=== PATIENT | female | born 1980 | race Caucasian/White ===

== ENCOUNTER 2017-01-28 04:48 | Inpatient (IN) | payer OTHER ==
[~2017-01-28] VITALS: Ht 160 cm; Wt 93.9 kg
[2017-01-28] VITALS (11 sets, daily range): BP systolic 106–135; BP diastolic 55–77
[~2017-01-28 04:48] MED LIST: ATIVAN0.5 MG PO; FLAGYL500 MG PO; IRON325 M1 PO; MOBIC7.5 MG PO; MULTIPLE VITAM1 EACH PO; NAPROSYN500 MG PO; RANITIDINE HCL150 MG PO; ZOFRAN4 MG PO
[2017-01-28 05:47] LABS: EOSINOPHIL (%) 1.4 % (0-5); EOSINOPHIL COUNT 0.1 K/uL (0-0.3); IMMATURE GRANULOCYTE (%) 1.7 % (0.0-0.7); IMMATURE GRANULOCYTE COUNT 0.2 K/uL; INSTRUMENT ABS NEUTROPHIL CT 6.5 K/uL; MCH 27.4 PG (29.0-34.0); MCHC 32.5 G/DL (30.0-36.0); MCV 84.4 FL (83-99); MEAN PLAT.VOLUME 10.4 uM^3 (9.5-12.4); MONOCYTE (%) 5.8 % (3-12); MONOCYTE COUNT 0.5 K/uL (0-0.8); NEUTROPHIL (%) 69.5 % (45-76); NEUTROPHIL COUNT 6.5 K/uL (1.8-6.4); PLATELET COUNT 201 K/uL (156-360); RBC DIS.WIDTH-CV 15.9 % (11.8-14.6); RBC DIS.WIDTH-SD 48.6 % (39-53); RED BLOOD COUNT 3.79 M/uL (3.80-5.20); WHITE BLOOD COUNT 9.4 K/uL (4.1-10.2)
[2017-01-29 03:46] VITALS: BP 128/86
[2017-01-29 07:11] LABS: EOSINOPHIL (%) 1.3 % (0-5); EOSINOPHIL COUNT 0.1 K/uL (0-0.3); HEMATOCRIT 28.2 % (36.0-46.0); IMMATURE GRANULOCYTE (%) 1.2 % (0.0-0.7); IMMATURE GRANULOCYTE COUNT 0.1 K/uL; INSTRUMENT ABS NEUTROPHIL CT 7.9 K/uL; LYMPHOCYTE COUNT 2.2 K/uL (1.0-2.8); MCH 27.2 PG (29.0-34.0); MCHC 31.9 G/DL (30.0-36.0); MCV 85.2 FL (83-99); MEAN PLAT.VOLUME 10.5 uM^3 (9.5-12.4); MONOCYTE (%) 7.1 % (3-12); MONOCYTE COUNT 0.8 K/uL (0-0.8); NEUTROPHIL (%) 70.7 % (45-76); NEUTROPHIL COUNT 7.9 K/uL (1.8-6.4); PLATELET COUNT 185 K/uL (156-360); RBC DIS.WIDTH-SD 49.5 % (39-53); RED BLOOD COUNT 3.31 M/uL (3.80-5.20); WHITE BLOOD COUNT 11.1 K/uL (4.1-10.2)
[2017-01-29 07:50] VITALS: BP 122/73
[2017-01-29 11:40] VITALS: BP 122/59
[2017-01-29 16:30] VITALS: BP 129/66
[2017-01-30 07:32] VITALS: BP 127/59
[2017-01-30 11:33] VITALS: BP 136/73
[2017-01-30 15:50] VITALS: BP 134/64
[2017-01-30 20:24] VITALS: BP 138/67
[2017-01-30 23:44] VITALS: BP 133/55
[2017-01-31 02:55] VITALS: BP 151/83
[2017-01-31] MEDS ORDERED: IBUPROFEN800 MG PO (09:52)
[2017-01-31] MEDS ORDERED: ENDOCET 5-3251 EACH PO (09:52)
== END 2017-01-31 12:50 | disposition home or self-care (01) | DRG 766 ==
LOC: 2WEST 04:48 → 2SOUTH 11:52 → 2WEST 01-31 12:50
PROVIDERS: Obstetrics & Gynecology
DX: O34.211 Maternal care for low transverse scar from previous cesarean delivery (principal); O99.824 Streptococcus B carrier state complicating childbirth; N85.8 Other specified noninflammatory disorders of uterus; K21.9 Gastro-esophageal reflux disease without esophagitis; Z3A.39 39 weeks gestation of pregnancy; Z37.0 Single live birth
CPT/HCPCS: 85025; 86850; 86900; 86901; 88302; J0690; J1100; J2250; J2274; J2405; J3010; J7120

== ENCOUNTER 2017-02-03 22:47 | Emergency (ER) | payer OTHER ==
[~2017-02-03] VITALS: Ht 160 cm; Wt 91.6 kg
[~2017-02-03 22:47] MED LIST changes: +ENDOCET 5-3251 EACH PO; +IBUPROFEN800 MG PO
[2017-02-04 00:02] LABS: HEMATOCRIT 30.7 % (36.0-46.0); MCH 27.6 PG (29.0-34.0); MCHC 32.9 G/DL (30.0-36.0); MCV 83.9 FL (83-99); MEAN PLAT.VOLUME 10.3 uM^3 (9.5-12.4); PLATELET COUNT 293 K/uL (156-360); RBC DIS.WIDTH-CV 15.5 % (11.8-14.6); RBC DIS.WIDTH-SD 47.8 % (39-53); RED BLOOD COUNT 3.66 M/uL (3.80-5.20); WHITE BLOOD COUNT 9.5 K/uL (4.1-10.2)
[2017-02-04 00:09] LABS: CHLORIDE 112 mEq/L (99-109); POTASSIUM 3.8 mEq/L (3.7-5.4)
[2017-02-04 00:10] LABS: SODIUM 143 mEq/L (136-147)
[2017-02-04 00:11] LABS: GLUCOSE 100 mg/dL (70-99)
[2017-02-04 00:13] LABS: ANION GAP 11 MEQ/L (2-14)
[2017-02-04 00:15] LABS: GFR ESTIMATE (CALCULATED) > 59 mL/min/
[2017-02-04 00:16] LABS: UREA NITROGEN (BUN) 10 mg/dL (9-23)
[2017-02-04 01:10] VITALS: BP 138/59
== END 2017-02-04 01:23 | disposition home or self-care (01) ==
LOC: EME 22:47 → EXP 22:47
PROVIDERS: Physician Assistant
DX: T78.40XA Allergy, unspecified, initial encounter (principal)
CPT/HCPCS: 80048; 85027; 99281; 99284

== ENCOUNTER 2017-02-06 15:47 | Inpatient (IN) | payer OTHER ==
[~2017-02-06] VITALS: Ht 170.2 cm; Wt 86.5 kg
[2017-02-06] VITALS (8 sets, daily range): BP systolic 142–184; BP diastolic 70–89
[2017-02-06 18:13] LABS: HEMATOCRIT 35.9 % (36.0-46.0); MCH 26.6 PG (29.0-34.0); MCHC 31.8 G/DL (30.0-36.0); MCV 83.9 FL (83-99); MEAN PLAT.VOLUME 9.5 uM^3 (9.5-12.4); PLATELET COUNT 369 K/uL (156-360); RBC DIS.WIDTH-CV 15.2 % (11.8-14.6); RBC DIS.WIDTH-SD 45.9 % (39-53); RED BLOOD COUNT 4.28 M/uL (3.80-5.20); WHITE BLOOD COUNT 9.9 K/uL (4.1-10.2)
[2017-02-06 18:22] LABS: CHLORIDE 110 mEq/L (99-109); POTASSIUM 3.3 mEq/L (3.7-5.4); SODIUM 144 mEq/L (136-147)
[2017-02-06 18:23] LABS: MAGNESIUM 1.9 mg/dL (1.3-2.7)
[2017-02-06 18:24] LABS: GLUCOSE 81 mg/dL (70-99)
[2017-02-06 18:26] LABS: ANION GAP 14 MEQ/L (2-14)
[2017-02-06 18:28] LABS: GFR ESTIMATE (CALCULATED) > 59 mL/min/
[2017-02-06 18:29] LABS: UREA NITROGEN (BUN) 7 mg/dL (9-23)
[2017-02-06 18:56] LABS: TROP-I INTERPRETATION NEGATIVE; TROPONIN-I < 0.01 ng/mL (0.0-0.30)
[2017-02-06 20:11] LABS: TOTAL BILIRUBIN 0.3 mg/dL (0.0-1.0)
[2017-02-06 20:12] LABS: ALKALINE PHOSPHATASE 96 IU/L (3-129)
[2017-02-06 20:14] LABS: DIRECT BILIRUBIN 0.2 mg/dL (0.0-0.3)
[2017-02-06 21:09] LABS: LACTATE DEHYDROGENASE 463 IU/L (20-246)
[2017-02-06 22:26] LABS: ADD MIUA? YES; BILIRUBIN NEGATIVE; BLOOD MODERATE; COLOR YELLOW ((YELLOW)); GLUCOSE (STRIP) NEGATIVE; KETONES 5; LEUKOCYTES SMALL; NITRITE NEGATIVE; PROTEIN (STRIP) NEGATIVE; SPECIFIC GRAVITY 1.004 (1.000-1.030); UROBILINOGEN 0.2 MG/DL (0.2-1.0)
[2017-02-06 22:27] LABS: ADD MIUA? YES; BILIRUBIN NEGATIVE; BLOOD MODERATE; COLOR YELLOW ((YELLOW)); GLUCOSE (STRIP) NEGATIVE; KETONES 5; LEUKOCYTES TRACE; NITRITE NEGATIVE; PROTEIN (STRIP) NEGATIVE; SPECIFIC GRAVITY 1.004 (1.000-1.030); UROBILINOGEN 0.2 MG/DL (0.2-1.0)
[2017-02-06 22:49] LABS: BACTERIA NONE SEEN /HPF; EPITHELIAL CELLS NONE SEEN /HPF; MUCUS NONE SEEN /LPF; RED BLOOD CELLS 0-5 /HPF (0-5)
[2017-02-07] VITALS (26 sets, daily range): BP systolic 121–180; BP diastolic 61–87
[2017-02-08 02:46] VITALS: BP 141/72
[2017-02-08 09:43] VITALS: BP 144/70
[2017-02-08 13:08] VITALS: BP 170/80
[2017-02-08] MEDS ORDERED: IBUPROFEN800 MG PO (13:25)
[2017-02-08] MEDS ORDERED: OXYCODONE HCL5 MG PO (13:25)
[2017-02-08] MEDS ORDERED: LABETALOL HCL200 MG PO (13:25)
[2017-02-08 16:39] VITALS: BP 185/88
[2017-02-08 20:38] VITALS: BP 147/73
[2017-02-08 23:19] VITALS: BP 118/66
[2017-02-09 03:20] VITALS: BP 122/64
[2017-02-09] MEDS ORDERED: NIFEDIPINE ER60 MG PO (07:20)
[2017-02-09] MEDS ORDERED: Procardia XL,Adalat PO (07:53)
[2017-02-09 07:58] VITALS: BP 136/64
== END 2017-02-09 09:42 | disposition home or self-care (01) | DRG 776 ==
LOC: LDRP-OP 15:47 → EME 15:47 → EDSTATUS 19:41 → 2WEST 19:42
PROVIDERS: Emergency Medicine; Nurse Practitioner Family; Obstetrics & Gynecology
DX: O14.95 Unspecified pre-eclampsia, complicating the puerperium (principal); O13.5 Gestational [pregnancy-induced] hypertension without significant proteinuria, complicating the puerperium; O99.63 Diseases of the digestive system complicating the puerperium; K44.9 Diaphragmatic hernia without obstruction or gangrene; O99.73 Diseases of the skin and subcutaneous tissue complicating the puerperium; L27.0 Generalized skin eruption due to drugs and medicaments taken internally; T50.905A Adverse effect of unspecified drugs, medicaments and biological substances, initial encounter; O99.345 Other mental disorders complicating the puerperium; F41.9 Anxiety disorder, unspecified
CPT/HCPCS: 80048; 80076; 81003; 83615; 83735; 84484; 85027; 87077; 87086; 87186; 93005; 99281; 99284; 99285; J1200; J1885; J2060; J2270; J2405; J2765; J3475; J7030; J7120; S0028

== ENCOUNTER 2017-12-19 15:50 | Emergency (ER) | payer OTHER ==
[~2017-12-19] VITALS: Ht 160 cm; Wt 91.4 kg
[~2017-12-19 15:50] MED LIST changes: +LABETALOL HCL200 MG PO; +NIFEDIPINE ER60 MG PO; +OXYCODONE HCL5 MG PO; +Procardia XL,Adalat PO
[2017-12-19 16:15] LABS: HEMATOCRIT 42.5 % (36.0-46.0); HEMOGLOBIN 14.7 G/DL (11.9-15.5); MCH 28.5 PG (29.0-34.0); MCHC 34.6 G/DL (30.0-36.0); MCV 82.5 FL (83-99); PLATELET COUNT 260 K/uL (156-360); RBC DIS.WIDTH-CV 14.4 % (11.8-14.6); RED BLOOD COUNT 5.15 M/uL (3.80-5.20); WHITE BLOOD COUNT 12.6 K/uL (4.1-10.2)
[2017-12-19 16:17] LABS: APPEARANCE CLOUDY ((CLEAR)); BILIRUBIN NEGATIVE; BLOOD SMALL; COLOR AMBER ((YELLOW)); GLUCOSE (STRIP) NEGATIVE; KETONES 5; LEUKOCYTES SMALL; NITRITE NEGATIVE; PROTEIN (STRIP) 100; SPECIFIC GRAVITY 1.029 (1.000-1.030); UROBILINOGEN 0.2 MG/DL (0.2-1.0)
[2017-12-19 16:22] LABS: CHLORIDE 104 mEq/L (99-109); POTASSIUM 3.7 mEq/L (3.7-5.4); SODIUM 137 mEq/L (136-147)
[2017-12-19 16:24] LABS: GLUCOSE 111 mg/dL (70-99)
[2017-12-19 16:28] LABS: CREATININE 0.8 mg/dL (0.6-1.3); GFR ESTIMATE (CALCULATED) > 59 mL/min/
[2017-12-19 16:29] LABS: UREA NITROGEN (BUN) 15 mg/dL (9-23)
[2017-12-19 16:54] LABS: RED BLOOD CELLS RARE /HPF (0-5)
[2017-12-19 16:55] LABS: BACTERIA 1+ /HPF; EPITHELIAL CELLS 1+ /HPF; MUCUS 2+ /LPF; UCUL ADDED? NO; WHITE BLOOD CELLS RARE /HPF (0-5)
[2017-12-19] MEDS ORDERED: FLOMAX0.4 MG PO (18:17)
[2017-12-19] MEDS ORDERED: NORCO 5/3251 TABLET PO (18:19)
[2017-12-19] MEDS ORDERED: ZOFRAN4 MG PO (18:19)
[2017-12-19 19:56] VITALS: BP 159/80
== END 2017-12-19 19:56 | disposition home or self-care (01) ==
LOC: EME 15:50
DX: N20.1 Calculus of ureter (principal); K80.20 Calculus of gallbladder without cholecystitis without obstruction
CPT/HCPCS: 74176; 80048; 81003; 85027; 99281; 99284; J0780; J2270